=== PATIENT | male | born 1975 | race Caucasian/White ===

== ENCOUNTER 2021-04-25 20:05 | Emergency (ER) | payer OTHER ==
[~2021-04-25] VITALS: Ht 172.7 cm; Wt 83.9 kg
[~2021-04-25 20:05] MED LIST: BENTYL10 MG PO; CLEARLAX119 GM PO; CYMBALTA30 MG PO; HYDROXYZINE HCL50 MG PO; LAMICTAL25 MG PO; MIRTAZAPINE15 MG PO; PRILOSEC OTC20 MG PO; PROPRANOLOL HCL40 MG PO; ZOFRAN4 MG PO; ZYRTEC10 MG PO
[2021-04-25] MEDS ORDERED: PAXIL20 MG PO (20:10)
--- NOTE | 2021-04-26 16:52 | EKG ---
[facility] [address] [facility] [place] [address] Signed Normal sinus rhythm Left axis deviation Voltage criteria for left ventricular hypertrophy Abnormal ECG When compared with ECG of 22-AUG-2020 00:35, Nonspecific T wave abnormality no longer evident in Anterior leads Confirmed by CORIE FERRARO DO ([id number]) on 04/26/2021 4:52:02 PM Electronically Signed By: CORIE FERRARO DO 04/26/21 1652 PATIENT NAME: SONJADALJIT HANNA Electrocardiogram DATE OF : 75 PHYSICIAN: CORIE FERRARO DO REPORT #: [id number] REPORT IS CONFIDENTIAL AND NOT TO BE RELEASED WITHOUT AUTHORIZATION
== END 2021-04-26 00:19 | disposition home or self-care (01) ==
LOC: ED 20:05
DX: R07.2 Precordial pain (principal); K21.9 Gastro-esophageal reflux disease without esophagitis; Z87.891 Personal history of nicotine dependence; Z79.899 Other long term (current) drug therapy
CPT/HCPCS: 71045; 80053; 83735; 84484; 85025; 93005; 93010; 99285-25

== ENCOUNTER 2022-02-04 21:50 | Observation (INO) | payer OTHER ==
[~2022-02-04] VITALS: Ht 172.7 cm; Wt 84.9 kg
[~2022-02-04 21:50] MED LIST changes: +PAXIL20 MG PO
--- NOTE | 2022-02-05 00:40 | NUR ---
RECIEVED BEDSIDE REPORT IN ER FROM OLLIE VILLALOBOS. PT TRANSPORTED VIA STRETCHER WITH [facility] GUARDS X 2 TO ROOM 115.
--- NOTE | 2022-02-05 01:00 | NUR ---
PT RECEIVED ONE LITER LR BOLUS IV IN ER WITH SECOND BOLUS OF LR INFUSING ON ARRIVAL TO INPATIENT ROOM. MAINTENANCE FLUIDS STARTED AT 85ML/HR AFTER SECOND BOLUS COMPLETE.
--- NOTE | 2022-02-05 01:06 | NUR ---
PT WAS ABLE TO STAND WITH ONLY STANDBY ASSIST. [facility] GUARDS X 2 ASSISTED GETTING PT INTO GOWN DUE TO SHACKLES. PT ALSO HAD URGE TO VOID, VOIDED 250 ML DARK YELLOW URINE.
--- NOTE | 2022-02-05 02:08 | NUR ---
PT AWAKE RESTING ON BED WATCHING TV, [facility] GUARDS X2 REMAIN IN ROOM. DENIES NEEDING ANYTHING FOR PAIN, DENIES NAUSEA.
--- NOTE | 2022-02-05 03:35 | NUR ---
PT'S EYES CLOSED, VISIBLE RISE AND FALL OF CHEST. [facility] STAFF X 2 IN ROOM, AWAKE AND ALERT.
--- NOTE | 2022-02-05 05:36 | NUR ---
IN ROOM TO CHECK ON PATIENT AND OBTAIN VITALS. PATIENT IS ASLEEP GUARDS AT BEDSIDE. PT AWAKENS EASILY TO VOICE. HAS VOIDED 500 ML IN URINAL STATES HE "DOESN'T REALLY HAVE ANY PAIN UNLESS I MOVE OR WHEN I PEE" PATIENT IS DECLINING NEEDING PAIN MED, TEMP IS BACK UP TO 101.7, PT ENCOURAGED TO HAVE IV PAIN MED FOR THE FEVER SINCE HE CANNOT HAVE ANYTHING BY MOUTH AND FOR THE PAIN HE HAS WITH MOVEMENT. GAVE PT 30 MG TORADOL IV PER PRN ORDER.
--- NOTE | 2022-02-05 06:24 | NUR ---
TEMP RECHECKED POST TORADOL IV DOWN TO 100.0 ORAL PT REPORTING IMPROVED PAIN "I'M JUST SLEEPY"
--- NOTE | 2022-02-05 06:49 | NUR ---
PT WAS ADMITTED AFTER MIDNIGHT FROM ER FOR APPENDICITIS. RECEIVED 2 LITERS OF LR, HAS LR RUNNING AT 85ML/HR. VOIDED TWICE THIS SHIFT AFTER ADMISSION. PT SUPPOSED TO BE AN ADD ON SURGICAL CASE THIS MORNING,TEMP IN ER WAS 101.3, IMPROVED WITH FLUIDS AND IV MEDS, TEMP WAS 101.7 THIS MORNING, PT GIVEN TORADOL IV AND TEMP DECREASED TO 100.0. PT HAS NOT HAD ANY ORAL INTAKE SINCE NOON 02/04/22. INMATE, HAS 2 GUARDS FROM [facility] IN ROOM.
--- NOTE | 2022-02-05 07:12 | NUR ---
Bedside report received from ALISSON RN. Pt is in bed dozing off. Guards at the bedside. NPO since MN. LR at 85ml/hr. Pt denies pain at this time. Pt will be an add-on, tentatively going to OR around 9 am.
--- NOTE | 2022-02-05 08:05 | NUR ---
Pt was provided with chlorhexidine wipes. Underwear removed. SCDs applied. Pre-op check list completed. Pt asked for jello but was made aware he needed to stay NPO for Sx.
--- NOTE | 2022-02-05 10:05 | NUR ---
Pt left for OR via bed. IVF switched to LR with straight tubing. Pt voided 500 ml prior to transfer.
[2022-02-05] MEDS ORDERED: PROPRANOLOL HCL40 MG PO (10:22)
--- NOTE | 2022-02-05 11:25 | NUR ---
THIS MORNING AROUND EIGHT CLOCK. PATIENT DID HIS SURGICAL WIPE DOWN. NEW GOWN AND SCDS ON.
--- NOTE | 2022-02-05 11:55 | NUR ---
PT TAKEN TO OR FOR SURGERY. WILL FOLLOW
--- NOTE | 2022-02-05 12:52 | NUR ---
02/05/22 1252 Naye Hercules 1218 PATIENT INTO PACU. REPORT RECIEVED FROM WILFREDO PETER. PATIENT IS ON 6 LITER OF OXYGEN VIA MASK. JAW THRUST STARTED. ORAL AIRWAY INSERTED. PATIENT BREATHING IS EQUAL AND WITH ASSISTANCE. OXYGEN SATURATIONS ARE 88% ABOVE. PATIENT SURIGICAL LAP SITES ARE CLEAN AND INTACT. NGHIA DRAINAGE SEROSANGUINOUS NOTED. IVF INFUSING. 1225 PATIENT BLOOD PRESSURES LOW. PICKLE PUMPER AT BEDSIDE. OXYGEN SATURATIONS TITRATED UP TO [address] STILL BEING HELD BY RN. PATIENT BREATHING IS EQUAL. PATIENT IS NON AROUSABLE. IVF STILL INFUSING. 1232 PATIENT TEMP WAS TAKEN AGAIN 100.7. PATIENT APPEARS TO BE DIAPHORETIC. PATIENT OXYGEN TITRATED DOWN TO 6 LITERS VIA MASK. ORAL AIRWAY STILL INTACT. PATIENT NO LONGER REQUIRES JAW THRUST. IVF INFUSING. 1240 PATIENT STILL NON AROUSABLE. PATIENT HAS OXYGEN AT 6 LITERS VIA MASK AND ORAL AIRWAY IN PLACE. BREATHING EQUAL. PATIENT NGHIA DRAINAGE MEASURED. 1248 PATIENT AWAKEN TO PAINFUL STIMULI. ORAL AIRWAY REMOVED. PATIENT OXYGEN SATURATIONS ARE ABOVE 95% ON 6 LITERS VIA MASK. PATIENT ABLE TO MOVE UPPER AND LOWER EXTERMITIES.
--- NOTE | 2022-02-05 12:58 | NUR ---
Transfer orders acknowledged. IVF to be continued. Pt can eat regular diet. Cipro BID and Flagyl BID started. Pain management: Plato Q4H. Awaiting Pt's arrival from PACU.
--- NOTE | 2022-02-05 14:05 | NUR ---
Pt arrived from PACU.He denies pain or nausea but is drowsy. BP is 88/51 with HR of 74. Dr Andrade made aware and as long as HR remains WNL, no interventions are necessary. Pt was able to order lunch (regular diet). Iced water and apple juice provided per Pt's request. RA. R abdominal NGHIA drain in place and draining serosanguinous fluid. Lap sites have dry sanguinous drainage present. BS hypoactive.
--- NOTE | 2022-02-05 14:15 | OR ---
[facility] [address] [place], [place] [address] Signed DATE OF OPERATION: 02/05/2022 SURGEON: Jose Luis Boland MD PREOPERATIVE DIAGNOSIS: Acute appendicitis with multiple fecaliths. POSTOPERATIVE DIAGNOSIS: Gangrenous acute appendicitis. PROCEDURE: Laparoscopic appendectomy. ANESTHESIA: General endotracheal, Yeison Tomlinson CRNA and local 10 mL of 0.25% Marcaine with epinephrine. INDICATION: This 46-year-old white man is a prisoner at [facility] and a patient of Caitlyn Sena. At approximately 3:30 a.m. more than 24 hours ago, he had lower abdominal pain which ultimately was intolerable. He presented to the emergency room late last night, was evaluated about midnight by me where he was found to have tenderness in the right lower quadrant and CT scan showing obvious appendicitis with multiple fecaliths. His white count was elevated to 22,000. He was fluid resuscitated, given intravenous antibiotic cefoxitin and is now prepared to undergo appendectomy preferably by a laparoscopic approach. The risk of bleeding, infection, need for open procedure and other unforeseen complications were reviewed in detail with him. He understands and wished to proceed. FINDINGS: Indeed the appendix was quite markedly inflamed. Indeed, the last half of the appendix was gangrenous. Manipulation of the appendix caused rupture of it and spillage of enteric fecal material. This was ultimately completely cleaned up of course. Complete appendectomy was undertaken transecting the very viable base of the appendix and flushed with the cecum. A drain was placed as well. There were no other findings of concern; terminal ileum was normal. The gallbladder and liver were normal. DESCRIPTION OF PROCEDURE: The patient was brought to the operating room, given a general endotracheal anesthetic. Electronically Signed By: JOSE LUIS BOLAND MD 02/05/22 1415 PATIENT NAME: DALJIT CASILLAS OPERATIVE REPORT DATE OF : 75 REPORT #: [id number] PHYSICIAN: JOSE LUIS BOLAND MD PCP: CAITLYN SENA REPORT IS CONFIDENTIAL AND NOT TO BE RELEASED WITHOUT AUTHORIZATION [facility] [address] [place], [place] [address] Signed Preoperative antibiotic cefoxitin had been given. Sequential compression device stockings were used and heparin subcutaneously administered. The abdomen was clipped and prepared with a chlorhexidine solution and draped sterilely. An infraumbilical incision was made and using an open Ángel cannula technique pneumoperitoneum achieved to a level of 14 mmHg of carbon dioxide gas. Intra-abdominal inspection showed no sign of ascites or carcinomatosis, but did show purulent material in the right pericolic gutter. An epigastric 10 mm port was placed and later an additional 5 mm right lower quadrant port. With two-hand manipulation, the cecum was easily rotated and densely adherent laterally and somewhat posteriorly was the appendix which was quite markedly inflamed. Gentle manipulation still resulted in rupture of the distal portion of the appendix allowing for drainage of fecal material. This was promptly suctioned free. With various manipulations, the appendix could be more fully mobilized. A window was created between the appendix and the mesoappendix and the cecum and using an Endo-JESSICA stapling device, the base the appendix was transected and flushed with the cecum. Notably, the base of the appendix was quite viable. Further manipulation allow for passage of the JESSICA stapling device to the mesoappendix and subsequently an additional load for complete resection. Two small clips were applied to areas of persistent vascularity of the mesoappendix. The appendix was placed in an endobag and extracted through the infraumbilical port site and photographed. Irrigation was undertaken quite copiously in the region of the retrocecal area and small fecalith debris removed completely. Irrigation was completed, and a 7 mm flat Chon drain was placed lateral to the cecum extending cephalad. It was secured to the skin with nylon suture. The trocars were removed under direct visualization showing no sign of bleeding. The infraumbilical fascial incision was reapproximated with interrupted 0 Vicryl suture as well as a running 0 PDS suture. 10 mL of 0.25% Marcaine with epinephrine was injected locally. The skin was closed with interrupted 3-0 Vicryl and Steri-Strips were applied. The patient was extubated in the operating room, anticipating transfer to the recovery room in good condition. MD GEOFF Lopez/DORY /[id number] cc: YURI Cunningham Electronically Signed By: JOSE LUIS BOLAND MD 02/05/22 1415 PATIENT NAME: DALJIT CASILLAS OPERATIVE REPORT DATE OF : 75 REPORT #: [id number] PHYSICIAN: JOSE LUIS BOLAND MD PCP: CAITLYN SENA REPORT IS CONFIDENTIAL AND NOT TO BE RELEASED WITHOUT AUTHORIZATION [address], [place] [address] Cerdaart Copies: CAITLYN SENA ~ Electronically Signed By: JOSE LUIS BOLAND MD 02/05/22 1415 PATIENT NAME: DALJIT CASILLAS OPERATIVE REPORT DATE OF : 75 REPORT #: [id number] PHYSICIAN: JOSE LUIS BOLAND MD PCP: CAITLYN SENA REPORT IS CONFIDENTIAL AND NOT TO BE RELEASED WITHOUT AUTHORIZATION
--- NOTE | 2022-02-05 14:15 | HP ---
[facility] [address] [place], [place] [address] Signed ADMISSION DATE: 02/04/2022 REASON FOR ADMISSION: Probable acute appendicitis. HISTORY OF PRESENT ILLNESS: This 46-year-old white man is a prisoner at [facility] and a patient of YURI Mensah. He said he began having pain approximately 3:30 a.m. this morning (it is nearly midnight now). The pain is primarily in the right lower and mid lower abdomen. It has been rather significant and severe and he was brought to the emergency room by snf transport personnel and evaluated by Dr. Guardado. He was found to have tenderness in the right lower quadrant. A CT scan was performed which on my examination shows probable dilated appendix with fecaliths. The official report is pending. Other evaluations included a CBC, which showed a white count of 22,000. The patient has prior history of hiatal hernia including repair of this. He continues to take omeprazole for reflux symptoms, however. He additionally is noted to have anxiety for which he takes Paxil. He has had left shoulder operation as well. He is considered to have ankylosing spondylitis as well. REVIEW OF SYSTEMS: He denies any shortness of breath or chest pain. He is thirsty. His pain is dominantly in the right lower abdomen. PHYSICAL EXAMINATION: GENERAL: Frost and muscular white man, who looks to be in moderate discomfort. HEENT: Mucous membranes are relatively dry. NECK: Trachea is midline. CHEST: Shows normal respiratory excursion. Pulses regular. ABDOMEN: Nondistended. Rovsing sign is negative. He does have tenderness in McBurney's point. EXTREMITIES: Show no clubbing, cyanosis, or edema. LABS AND STUDIES: As described. A CBC has been obtained. I reviewed the CT scan in detail myself as the official report is pending. ASSESSMENT AND PLAN: Most likely, he does have acute appendicitis. I discussed with him the pathophysiology Electronically Signed By: JOSE LUIS BOLAND MD 02/05/22 1415 PATIENT NAME: DALJIT CASILLAS HISTORY AND PHYSICAL DATE OF : 75 REPORT #: [id number] PHYSICIAN: JOSE LUIS BOLAND MD PCP: CAITLYN SENA REPORT IS CONFIDENTIAL AND NOT TO BE RELEASED WITHOUT AUTHORIZATION [address] [address] Signed of probable appendicitis and recommendation of treatment to include appendectomy. The patient is dehydrated at this point and needs additional fluids for resuscitation, IV antibiotics, and parenteral pain medication. I would recommend appendectomy preferably by laparoscopic approach likely in the morning. The risks of bleeding, infection, need for open procedure and other unforeseen complications were reviewed in detail. He understands and wished to proceed. MD GEOFF Lopez/DORY /[id number] cc: YURI Cunningham Dr. Copies: CAITLYN SENA ~ Electronically Signed By: JOSE LUIS BOLAND MD 02/05/22 1415 PATIENT NAME: DALJIT CASILLAS HISTORY AND PHYSICAL DATE OF : 75 REPORT #: [id number] PHYSICIAN: JOSE LUIS BOLAND MD PCP: CAITLYN SENA REPORT IS CONFIDENTIAL AND NOT TO BE RELEASED WITHOUT AUTHORIZATION
--- NOTE | 2022-02-05 15:15 | NUR ---
Pt toleraTED LUNCH WELL. No nausea reported afterwards. Pain is still minimal.
--- NOTE | 2022-02-05 16:00 | NUR ---
Pt up to the bathroom (BM). Pt was incontinent of small loose BM in bed (most probably d/t antibiotics). Pt was encouraged to drink more fluids as BP remains soft.
--- NOTE | 2022-02-05 19:05 | NUR ---
REPORT RECEIVED FROM INES VILLALOBOS, PT WENT TO OR FOR LAP APPY RETURNED AROUND 1400, HAS BEEN TOLERATING REGULAR DIET THIS EVENING. NGHIA DRAINED 55 CC. NO FEVERS TODAY RECEIVING IV ABX.
--- NOTE | 2022-02-05 21:03 | NUR ---
PATIENT ASSESSMENT COMPLETE VITALS OBTAINED. PT REPORTS PAIN IS 3 BUT WORSE WHEN HE GETS UP, MEDICATED WITH TORADOL IV. EVENING MEDS GIVEN. TOLERATING PO FLUIDS WELL AND IS EATING. REPORTS A BM PRIOR TO THIS RN COMING IN. VOIDING WELL. DENIES NEEDS. GUARDS X 2 IN ROOM.
--- NOTE | 2022-02-06 00:10 | NUR ---
GUARDS X 2 FROM [facility] HAVE SWITCHED OUT. PATIENT SLEEPING BUT AWAKENS EASILY, DENIES ANY NEEDS AT THIS TIME, STATES PAIN IS "GOOD" "I'M ALRIGHT"
--- NOTE | 2022-02-06 01:27 | NUR ---
CHECKED IN ON PT, HE IS ASLEEP, HOB ELEVATED 45 DEGREES. IV FLUID CONTIUES INFUSING, ALMOST COMPLETE. EMPTIED URINAL. GUARDS X 2 REMAIN IN ROOM.
--- NOTE | 2022-02-06 03:48 | NUR ---
CHECKED IN ON PT, HE IS RESTING, EYES CLOSED EVEN RISE AND FALL OF CHEST. GUARDS FROM [facility] X 2 REMAIN IN ROOM.
--- NOTE | 2022-02-06 05:38 | NUR ---
PT ASSESSMENT COMPLETED. PT HAS BEEN IN A DEEP SLEEP, REPORTING HIS ABDOMINAL PAIN IS A "4" DENIES NAUSEA. PT MEDICATED WITH 2 NORCO, SAYS "IT GETS UP THERE WHEN I MOVE OR GET UP" PATIENT ASSESSMENT COMPLETED. STERI STRIP NOTED TO UMBILLICUS IS BEGINNING TO PEEL OFF SLIGHTLY. NGHIA DRAIN IS CONTINUING TO DRAIN. EMPTIED 30 CC OF SEMIPURLENT SEROSANGUINEOUS FLUID.
--- NOTE | 2022-02-06 07:10 | NUR ---
Bedside report received from ALISSON RN. Pt is awake in bed, watching TV. No signs of distress. Pain is minimal, mostly when moving around as Pt received 2 Norcos prior to shift change. No N/V. IVF at 85 ml/hr. No BM overnight. Pt has an excellent PO fluid intake. BP remains soft - HR WNL.
--- NOTE | 2022-02-06 08:39 | NUR ---
Pt was walking around unit as ordered by physician. Pain increased as expected but Pt declined another intervention once he was back in bed. No N/V. Pt tolerated breakfast well. Linen and gown changed.
--- NOTE | 2022-02-06 08:42 | NUR ---
PT WAS UP W/GUARDS AT [facility]. PT WAS SWEATY SO RN & CNA2 CHANGED LINEN/GOWN. WIPED DOWN FRONT WITH WARM WASH CLOTH. RN IN ROOM W/PT NOW. CALL LIGHT IN REACH WITH GUARDS AT BEDSIDE.
[2022-02-06] MEDS ORDERED: CIPROFLOXACIN500 MG PO (09:40)
[2022-02-06] MEDS ORDERED: METRONIDAZOLE250 MG PO (09:40)
[2022-02-06] MEDS ORDERED: HYDROCODON-ACE1 EA10 PO (09:41)
[2022-02-06] MEDS ORDERED: MOTRIN IB200 MG PO (09:42)
[2022-02-06] MEDS ORDERED: TYLENOL EXTRA500 MG PO (09:42)
--- NOTE | 2022-02-06 10:49 | NUR ---
THIS CNA2 REMOVIED IV'S FROM BOTH SITES VIA NURSE INSTRUCTION UPON D/C.
--- NOTE | 2022-02-07 11:41 | DS ---
[facility] [address] [place], [place] [address] Signed ADMISSION DATE: 02/04/2022 DISCHARGE DATE: 02/06/2022 REASON FOR ADMISSION: This 46-year-old white man is a prisoner at [facility] and a patient YURI Mensah. He began having pain approximately 3:30 in the morning (nearly midnight at time of his evaluation by me). Pain mostly noted in the right lower abdomen. Evaluation in the emergency room by Dr. Guardado showed marked tenderness and a CT scan was performed confirming a dilated appendix with multiple fecaliths. His CBC showed a white count of 22,000. He has prior history of laparoscopic hiatal hernia repair in the past. He is admitted for further evaluation and care. PERTINENT PHYSICAL EXAMINATION: GENERAL: Showed a upton and muscular white man who look to be in moderate discomfort. HEENT: Mucous membranes dry. NECK: Trachea midline. CHEST: Clear. HEART: Regular without murmur. ABDOMEN: Nondistended. Rovsing sign is negative. He does have tenderness at McBurney's point. HOSPITAL COURSE: He was fluid resuscitated and given intravenous antibiotic cefoxitin and parenteral pain medication given. The following morning on February 05, 2022, he underwent laparoscopic appendectomy. He was found to have a markedly dilated appendix with gangrenous changes in the distal one-half. Manipulation of the appendix allowed for some leakage of enteric contents from the appendix, which was suctioned free of course. Complete appendectomy was performed with the appendix excised flush with the cecum. Given the extent of inflammation and advanced gangrenous appendicitis, a drain was placed. Postoperatively, he recovered well. He was given IV antibiotic meropenem and additionally Cipro and Flagyl antibiotics. By the time of discharge, he is ambulating well, tolerating a regular diet. He is afebrile and the drain in place shows turbid, but not purulent drainage. I am anticipating to see him at the custodial clinic on Tuesday this coming week and likely will be able to remove the drain at that time. DISCHARGE MEDICATIONS: Will include: 1. Cipro 500 mg one p.o. b.i.d. #10. Electronically Signed By: JOSE LUIS BOLAND MD 02/07/22 1141 PATIENT NAME: DALJIT CASILLAS DISCHARGE SUMMARY DATE OF : 75 REPORT #: [id number] PHYSICIAN: JOSE LUIS BOLAND MD PCP: CAITLYN SENA REPORT IS CONFIDENTIAL AND NOT TO BE RELEASED WITHOUT AUTHORIZATION [facility] [address] [place], [place] [address] Signed 2. Flagyl 250 mg p.o. t.i.d. #15. 3. [place] 5/325 1-2 p.o. q. 6 hours as needed for pain #10. 4. Tylenol Extra Strength 500 mg two tablets p.o. q.6 hours as needed for pain #60. 5. Motrin 600 mg p.o. q.6 hours as needed for pain. He will continue to resume his medication of omeprazole 20 mg daily, paroxetine 20 mg daily and propranolol 40 mg p.o. b.i.d. (migraine prophylaxis). DISCHARGE DIAGNOSES: 1. Acute gangrenous appendicitis, status post laparoscopic appendectomy September 07, 2021. 2. History of migraines. 3. Gastroesophageal reflux, status post history of laparoscopic anti-reflux operation. MD GEOFF Lopez/MALIKAL /[id number] cc: YURI Cunningham Dr. Copies: CAITLYN SENA ~ Electronically Signed By: JOSE LUIS BOLAND MD 02/07/22 1141 PATIENT NAME: DALJIT CASILLAS DISCHARGE SUMMARY DATE OF : 75 REPORT #: [id number] PHYSICIAN: JOSE LUIS BOLAND MD PCP: CAITLYN SENA REPORT IS CONFIDENTIAL AND NOT TO BE RELEASED WITHOUT AUTHORIZATION
--- NOTE | 2022-02-07 13:59 | EKG ---
[facility] [address] [place], [place] [address] Signed Sinus tachycardia Left anterior fascicular block Minimal voltage criteria for LVH, may be normal variant ( R in aVL ) Abnormal ECG When compared with ECG of 25-APR-2021 20:09, Confirmed by GABE PHILIP MD ([id number]) on 02/07/2022 1:59:35 PM Electronically Signed By: GABE PHILIP MD 02/07/22 1359 PATIENT NAME: DALJIT CASILLAS Electrocardiogram DATE OF : 75 PHYSICIAN: GABE PHILIP MD REPORT #: [id number] REPORT IS CONFIDENTIAL AND NOT TO BE RELEASED WITHOUT AUTHORIZATION
== END 2022-02-06 11:00 | disposition home or self-care (01) ==
LOC: ED 21:50 → MS 21:52
PROVIDERS: ADMIT Surgery; ATTEND Surgery
PROC: 0DTJ4ZZ Resection of Appendix, Percutaneous Endoscopic Approach (ICD-10-PCS; principal; 2022-02-04)
DX: K35.32 Acute appendicitis with perforation, localized peritonitis, and gangrene, without abscess (principal); K21.9 Gastro-esophageal reflux disease without esophagitis; Z87.891 Personal history of nicotine dependence; Z20.822 Contact with and (suspected) exposure to COVID-19
CPT/HCPCS: 00840; 36415; 74177; 80053; 81001; 83605; 83690; 84484; 85025; 87040; 87502; 93005; 93010; 96361; 96365; 96366; 96372; 96375; 96376; 99285-25; C9803; G0378; J0131; J0330; J0694; J1100; J1644; J1885; J2001; J2185; J2250; J2270; J2405; J2704; J3010; J7121; Q9967; U0003

== ENCOUNTER 2022-09-03 10:55 | Day surgery (SDC) | payer OTHER ==
[~2022-09-03] VITALS: Ht 172.7 cm; Wt 79.5 kg
--- NOTE | ~2022-09-03 | OR ---
[facility] [place] [facility] [address], [place] [address] Draft DATE OF OPERATION: 09/03/2022 SURGEON: Jose Luis Boland MD PREOPERATIVE DIAGNOSIS: Gastroesophageal reflux with episodic dysphagia. POSTOPERATIVE DIAGNOSIS: Small hiatal hernia with Cruz's esophagus. No evidence of stricture or neoplasm. PROCEDURE: Esophagogastroduodenoscopy with biopsy. ANESTHESIA: Intravenous sedation, fentanyl 100 mcg, Versed 6 mg. INDICATION: This 47-year-old white man is patient Caitlyn Sena at [facility]. He had been referred to Dr. Isha Jones in [place] in the past and has apparently undergone upper endoscopy and consideration was made for Fahad fundoplication. The patient was referred to [place] for consideration of repeat upper endoscopy. The patient does have some episodes of dysphagia, but no hematemesis. His reflux symptoms were markedly improved with PPI medication. He is admitted to undergo upper endoscopy at this time to better characterize his dysphagia in relation to his well-established reflux. The risks of bleeding, infection, and perforation related to upper endoscopy reviewed in detail. He understands and wished to proceed. FINDINGS: He did have distal esophageal Cruz's epithelium. There was no sign of neoplasm or stricture. The mid esophagus did not have felinization or anything to suggest the eosinophilic esophagitis. The biopsies were obtained nevertheless. Stomach and duodenum were essentially normal and he does have hiatal hernia. Additionally, he was noted to have a negative CLOtest 20 minutes post procedure. DESCRIPTION OF PROCEDURE: The patient was brought to the endoscopy suite, placed in lateral decubitus position, given topical lidocaine hypopharyngeal anesthesia. Intravenous sedation was induced with fentanyl and Versed to the point of slurred speech and nystagmus with full cardiopulmonary monitoring. A bite block was placed. An Olympus video upper endoscope PATIENT NAME: DALJIT CASILLAS OPERATIVE REPORT DATE OF : 75 REPORT #: [id number] PHYSICIAN: JOSE LUIS BOLAND MD PCP: CAITLYN SENA REPORT IS CONFIDENTIAL AND NOT TO BE RELEASED WITHOUT AUTHORIZATION [facility] [place] [facility] [address], [place] [address] Draft was passed in the hypopharynx. The vocal cords appeared normal including the posterior commissure. The scope was advanced into the esophagus. The esophagus appeared normal except in the distal portion, there was mild chronic inflammatory change. A geographic pattern suggestive of Cruz's epithelium was noted as well, however. The scope was advanced in the stomach, which was insufflated with air. Rugal folds were normal. Antrum and pylorus were normal. The scope was passed through the pylorus into the duodenum, which was also normal. It was biopsied and then the scope withdrawn. Biopsies taken of the antrum for both LAWRENCE and pathologic testing. The scope was withdrawn to the GE junction. A small hiatal hernia was confirmed. There was no sign of Delta's ulcer or proximal neoplasm. The scope was straightened, withdrawn. Narrow band imaging employed to better characterize the mucosa of the distal esophagus highly consistent with Cruz's epithelium. Biopsies were taken there. There was no sign of stricture or neoplasm proper. The scope was withdrawn to the mid esophagus, where biopsies were obtained to rule out eosinophilic esophagitis based on his low-grade dysphagia. Scope was withdrawn and removed and the patient was taken to the recovery room in good condition. CONCLUDING DIAGNOSIS: Small hiatal hernia with chronic esophagitis on PPI medication. Cruz's esophagus is associated with it. Consideration will be made for ongoing medical therapy with PPI for operative intervention by reconstruction of GE junction. My understanding is Caitlyn Sena has previously referred the patient to Dr. Jones in [place] for consideration of this and fundoplication. Alternative methods of reflux control that are surgical are acknowledged including Hill posterior gastropexy and other interventions. We will plan to see the patient in the correction clinic to follow through with biopsies on the esophagus. I am happy to see him further for reflux management at the discretion of Caitlyn Sena depending on her intention of evaluation and treatment by Dr. Jones. MD GEOFF Lopez/MALIKAL /[id number] PATIENT NAME: DALJIT CASILLAS OPERATIVE REPORT DATE OF : 75 REPORT #: [id number] PHYSICIAN: JOSE LUIS BOLAND MD PCP: CAITLYN SENA REPORT IS CONFIDENTIAL AND NOT TO BE RELEASED WITHOUT AUTHORIZATION [facility] [address], [place] [address] Draft cc: YURI Cunningham Copies: CAITLYN SENA ~ PATIENT NAME: DALJIT CASILLAS OPERATIVE REPORT DATE OF : 75 REPORT #: [id number] PHYSICIAN: JOSE LUIS BOLAND MD PCP: CAITLYN SENA REPORT IS CONFIDENTIAL AND NOT TO BE RELEASED WITHOUT AUTHORIZATION
[~2022-09-03 10:55] MED LIST changes: +CIPROFLOXACIN500 MG PO; +HYDROCODON-ACE1 EA10 PO; +METRONIDAZOLE250 MG PO; +MOTRIN IB200 MG PO; +TYLENOL EXTRA500 MG PO
[2022-09-03] MEDS ORDERED: CYMBALTA60 MG PO (11:15)
--- NOTE | 2022-09-03 13:28 | NUR ---
09/03/22 1328 Sheets,Giselle 1317 PT ARRIVED TO PACU ON 3L VIA NC. PT WAKES EASILY AND DENIES CONCERNS. VSS. 1325 O2 REMOVED. PT TALKING TO RN.
--- NOTE | 2022-09-06 16:35 | PATH ---
[facility] [address], [place] [address] Signed SPECIMEN(S): A DUODENAL BIOPSY SPECIMEN(S): B ANTRUM BIOPSY SPECIMEN(S): C LOWER ESOPHAGEAL BIOPSY SPECIMEN(S): D MID ESOPHAGEAL BIOPSY SPECIMEN SOURCE: A. DUODENAL BIOPSY B. ANTRUM BIOPSY C. LOWER ESOPHAGEAL BIOPSY D. MID ESOPHAGEAL BIOPSY CLINICAL HISTORY: GERD/dysphagia. Post: Small hiatal hernia, Cruz's esophagus. FINAL PATHOLOGIC DIAGNOSIS: A. Duodenal biopsy: - Benign duodenal mucosa, negative for specific diagnostic abnormality. B. Antrum biopsy: - Benign gastric antral-type mucosa with focal slight chronic inflammation. - Negative for evidence of Helicobacter organisms on immunostained sections. C. Lower esophageal biopsy: - Gastroesophageal junction with specialized intestinal (goblet cell) metaplasia, negative for dysplasia. D. Mid esophageal biopsy: - Benign esophageal mucosa, negative for increased epithelial eosinophils. JVR:sm:C2NR MICROSCOPIC EXAMINATION: Histologic sections of all submitted blocks are examined by light microscopy. These findings, together with the gross examination, support the pathologic diagnosis. A Helicobacter pylori immunostain is performed with appropriate positive and negative controls on block (B1) and is negative for organisms. JVR:sm GROSS DESCRIPTION: A. The specimen, labeled and designated "[place], duodenal biopsy," is received in formalin and consists of two garcia soft tissue fragments, ranging from 0.3-0.4 cm. Entirely submitted in (A1). B. The specimen, labeled and designated "[place], antrum biopsy," is received in formalin and consists of one garcia soft tissue fragment, 0.7 cm. Entirely PATIENT NAME: DALJIT CASILLAS PATHOLOGY DATE OF : 75 REPORT #: [id number] PHYSICIAN: CASSANDRA ERICKSON PCP: CAITLYN SENA REPORT IS CONFIDENTIAL AND NOT TO BE RELEASED WITHOUT AUTHORIZATION [facility] [address], [place] [address] Signed submitted in (B1). C. The specimen, labeled and designated "[place], lower esophageal biopsy," is received in formalin and consists of five garcia soft tissue fragments, ranging from 0.1-0.4 cm. Entirely submitted in (C1). D. The specimen, labeled and designated "[place], mid esophageal biopsy," is received in formalin and consists of two garcia soft tissue fragments, ranging from 0.3-0.4 cm. Entirely submitted in (D1). VB (under the direct supervision of a pathologist) The Gross Description was prepared using a voice recognition system. The report was reviewed for accuracy; however, sound-alike word errors, addition and/or deletions may occur. If there is any question about this report, please contact Client Services. ADDITIONAL NOTES: Immunohistochemical and/or in situ hybridization studies were performed on this case with the appropriate positive controls that react as expected. This test was developed and its performance characteristics determined by [facility]. It has not been cleared or approved by the U.S. Food and Drug Administration. The FDA has determined that such clearance or approval is not necessary. This test is used for clinical purposes. It should not be regarded as investigational or for research. [facility] is certified under the Clinical Laboratory Improvement Amendments of 1988 (CLIA) as qualified to perform high complexity clinical laboratory testing. This assay has not been validated for specimens that have been decalcified. PERFORMING LABORATORY: The technical component was performed by [facility], [address] [place] [address], [place] [address] (CLIA# [id number]). Professional interpretation was performed by [facility], [address] [place], [place] [address]., [place] [address] (CLIA#: [id number]). Diagnostician: Carlos Hollingsworth MD Pathologist Electronically Signed 09/06/2022 Copies: PATIENT NAME: DALJIT CASILLAS PATHOLOGY DATE OF : 75 REPORT #: [id number] PHYSICIAN: CASSANDRA ERICKSON PCP: CAITLYN SENA REPORT IS CONFIDENTIAL AND NOT TO BE RELEASED WITHOUT AUTHORIZATION [facility] [address] [facility] [place] [address] Signed ~ PATIENT NAME: DALJIT CASILLAS PATHOLOGY DATE OF : 75 REPORT #: [id number] PHYSICIAN: CASSANDRA PATHOLOGY PCP: CAITLYN SENA REPORT IS CONFIDENTIAL AND NOT TO BE RELEASED WITHOUT AUTHORIZATION
== END 2022-09-03 13:52 | disposition home or self-care (01) ==
LOC: OPS 10:55 → DS 10:55 → OPS 11:30 → DS 11:30 → OPS 12:00
PROVIDERS: ATTEND Surgery
PROC: 0DB58ZX Excision of Esophagus, Via Natural or Artificial Opening Endoscopic, Diagnostic (ICD-10-PCS; 2022-09-03)
PROC: 0DB98ZX Excision of Duodenum, Via Natural or Artificial Opening Endoscopic, Diagnostic (ICD-10-PCS; principal; 2022-09-03 12:00)
DX: K21.00 Gastro-esophageal reflux disease with esophagitis, without bleeding (principal); K22.70 Barrett's esophagus without dysplasia; K44.9 Diaphragmatic hernia without obstruction or gangrene; K29.50 Unspecified chronic gastritis without bleeding
CPT/HCPCS: 99153; G0500; J2250; J3010; J7121

== ENCOUNTER 2024-08-19 08:30 | Emergency (ER) | payer OTHER ==
[~2024-08-19] VITALS: Ht 172.7 cm; Wt 87.5 kg
[~2024-08-19 08:30] MED LIST changes: +CYMBALTA60 MG PO; +DOCUSATE SODIU250 MG PO; +MELATONIN3 MG PO; +MIRALAX17 GM PO; +SUMATRIPTAN SUC50 MG PO
[2024-08-19 09:35] VITALS: BP 151/94
== END 2024-08-19 09:35 | disposition home or self-care (01) ==
LOC: ED 08:30
DX: S83.92XA Sprain of unspecified site of left knee, initial encounter (principal); X50.1XXA Overexertion from prolonged static or awkward postures, initial encounter; K21.9 Gastro-esophageal reflux disease without esophagitis; Z87.891 Personal history of nicotine dependence; Z79.899 Other long term (current) drug therapy
CPT/HCPCS: 73560; 99283